=== PATIENT | male | born 1955 | race Caucasian/White ===

== ENCOUNTER 2017-01-11 11:04 | Emergency (ER) | payer MEDICAID ==
[2017-01-11 11:20] VITALS: BMI 22.9
[2017-01-11 11:24] VITALS: PULSE 62; RESP 18
[2017-01-11 12:16] LABS: RBC URINE 606 /hpf (0-3); URINE BILIRUBIN NEGATIVE (NEGATIVE); URINE BLOOD 2+ (NEGATIVE); URINE COLOR Red (YELLOW); URINE GLUCOSE (UA) NORMAL (Normal); URINE KETONE NEGATIVE (NEGATIVE); URINE LEUKOCYTE ESTERASE NEG Leu/uL (Negative); URINE PROTEIN 2+ mg/dL (NEGATIVE); URINE UROBILINOGEN NORMAL mg/dL (0.2-1.0); WBC URINE 5 /hpf (0-5)
--- NOTE | 2017-01-11 12:24 | C.PDOC ---
History Of Present Illness 61 year old male presents to the ED for evaluation of urinary retention which began earlier today. Patient states he was seen in a hospital around 1 week ago for the same complaint and had a altamirano catheter placed. Patient states he recently saw Dr. Jones, who removed the altamirano catheter and advised patient to follow up in clinic because he does not have insurance coverage. Patient states he was unable to urinate today and attempted to inset a altamirano catheter by himself without success. Patient denies abdominal pain, back pain, dysuria. Time Seen by Provider: 01/11/17 11:18 Chief Complaint (Nursing): Male Genitourinary History Per: Patient History/Exam Limitations: no limitations Onset/Duration Of Symptoms: Hrs Current Symptoms Are (Timing): Still Present Quality Of Discomfort: "Pain" Associated Symptoms: Urinary Symptoms (urinary retention ). denies: Back Pain Additional History Per: Patient Past Medical History Reviewed: Historical Data, Nursing Documentation, Vital Signs Vital Signs: Last Vital Signs Temp 97.8 F 01/11/17 12:57 Pulse 62 01/11/17 12:57 Resp 18 01/11/17 12:57 BP 119/74 01/11/17 12:57 Pulse Ox 98 01/11/17 12:57 - Medical History PMH: Benign Prostatic Hyperplasia Surgical History: No Surg Hx - [facility] Procedures INSERT INDWELLING CATH (02/09/13) Family History: States: Unknown Family Hx - Social History Hx Tobacco Use: No Hx Alcohol Use: No Hx Substance Use: No - Immunization History Hx Tetanus Toxoid Vaccination: No Hx Influenza Vaccination: No Hx Pneumococcal Vaccination: No Review Of Systems Gastrointestinal: Negative for: Abdominal Pain Genitourinary: Positive for: Other (urinary retention ). Negative for: Dysuria Musculoskeletal: Negative for: Back Pain Physical Exam - Physical Exam Appears: Non-toxic, No Acute Distress Skin: Normal Color, Warm, Dry Head: Atraumatic, Normacephalic Eye(s): bilateral: Normal Inspection Oral Mucosa: Moist Neck: Supple Chest: Symmetrical, No Deformity, No Tenderness Cardiovascular: Rhythm Regular, No Murmur Respiratory: Normal Breath Sounds, No Rales, No Rhonchi, No Wheezing Male Genital: Other (scant amount of blood at tip of penis ) Extremity: Normal ROM, Capillary Refill (less than 2 seconds ) Neurological/Psych: Oriented x3, Normal Speech, Normal Cognition Gait: Steady ED Course And Treatment O2 Sat by Pulse Oximetry: 99 (on RA) Pulse Ox Interpretation: Normal Progress Note: Urinalysis ordered and reviewed. Urine culture obtained and sent to lab for further evaluation. Bladder scan > 600 ml urine. 18Fr altamirano catheter inserted successfully on first attempt with return of yellow urine with scant amount of blood, connected to altamirano bag. Patient tolerated well with instant relief. Reassessment Condition: Improved Disposition - Disposition Referrals: [facility] [Outside] [facility] [Outside] Robb Jones MD [Staff Provider] - Disposition: HOME/ ROUTINE Disposition Time: 13:00 Condition: GOOD Additional Instructions: Follow up with clinic and urology for further evaluation Instructions: Urinary Retention in Men (ED) Forms: [facility] (Guyanese) Print Language: AZERBAIJANI - POA Present On Arrival: None - Clinical Impression Clinical Impression: Urinary retention - PA / APPRENTICE JOCKEY / Resident Statement MD/DO has reviewed & agrees with the documentation as recorded. - Scribe Statement The provider has reviewed the documentation as recorded by the Scribe (Amber Lim) All medical record entries made by the Scribe were at my direction and personally dictated by me. I have reviewed the chart and agree that the record accurately reflects my personal performance of the history, physical exam, medical decision making, and the department course for this patient. I have also personally directed, reviewed, and agree with the discharge instructions and disposition. Procedures - Catheter Insertion (Urinary) Type of Catheter Inserted: Altamirano (18Fr) Results: successfully catheterize-immediate flow Patient Tolerated Procedure: well, no complications Complications: bloody urine (slighy)
[2017-01-11 12:59] VITALS: BP 119/74; TEMP 97.8
[2017-01-11 15:19] VITALS: O2SAT 99
== END 2017-01-11 12:59 | disposition home or self-care (01) ==
LOC: C.ER 11:04
DX: R33.9 Retention of urine, unspecified (principal)

== ENCOUNTER 2017-01-14 16:52 | Emergency (ER) | payer SELFPAY ==
[2017-01-14 16:53] VITALS: BMI 22.9
[2017-01-14 17:06] VITALS: BP 154/83; RESP 18; TEMP 98
--- NOTE | 2017-01-14 17:18 | C.PDOC ---
History Of Present Illness REQUESTING ESPARZA REMOVAL. PLACED 01/11 DENIES PAIN, FEVER. UNABLE TO FU CLINIC DUE TO LACK INSURANCE. REQUESTING REMOVAL DUE TO DISCOMFORT, DIFF TO WORK W ESPARZA EXAM ABD NEG +ESPARZA IN PLACE NO HEMATURIA Time Seen by Provider: 01/14/17 17:14 Chief Complaint (Nursing): Male Genitourinary History Per: Patient History/Exam Limitations: no limitations Onset/Duration Of Symptoms: Days Past Medical History Reviewed: Historical Data, Nursing Documentation, Vital Signs Vital Signs: Last Vital Signs Temp 98 F 01/14/17 17:02 Pulse 63 01/14/17 17:02 Resp 18 01/14/17 17:02 BP 154/83 H 01/14/17 17:02 Pulse Ox 99 01/14/17 17:19 - Medical History PMH: Benign Prostatic Hyperplasia - [facility] Procedures INSERT INDWELLING CATH (02/09/13) Family History: States: No Known Family Hx - Social History Hx Tobacco Use: No Hx Alcohol Use: No Hx Substance Use: No - Immunization History Hx Tetanus Toxoid Vaccination: No Hx Influenza Vaccination: No Hx Pneumococcal Vaccination: No Review Of Systems Except As Marked, All Systems Reviewed And Found Negative. Constitutional: Negative for: Fever Gastrointestinal: Negative for: Abdominal Pain Genitourinary: Negative for: Dysuria, Hematuria Physical Exam - Physical Exam Appears: Non-toxic, No Acute Distress Skin: Warm, Dry, No Rash Head: Atraumatic, Normacephalic Oral Mucosa: Moist Gastrointestinal/Abdominal: Normal Exam, Soft, No Tenderness, No Guarding, No Rebound Male Genital: Other ((+) Esparza in place. (-) No hematuria.) Extremity: Normal ROM, No Swelling Neurological/Psych: Oriented x3, Normal Speech, Normal Motor ED Course And Treatment O2 Sat by Pulse Oximetry: 99 (RA) Pulse Ox Interpretation: Normal Disposition Counseled Patient/Family Regarding: Diagnosis, Need For Followup, Rx Given - Disposition Referrals: [facility] [Outside] [facility] [Outside] Disposition: HOME/ ROUTINE Disposition Time: 17:18 Condition: IMPROVED Prescriptions: Tamsulosin [Flomax] 0.4 mg PO DAILY #14 cap Forms: [facility] Macanese, [facility] (Macanese) Print Language: LEBANESE - Clinical Impression Clinical Impression: Encounter for Esparza catheter removal - Scribe Statement The provider has reviewed the documentation as recorded by the Scribe Jaylin Hannah Provider Attestation: All medical record entries made by the John were at my direction and personally dictated by me. I have reviewed the chart and agree that the record accurately reflects my personal performance of the history, physical exam, medical decision making, and the department course for this patient. I have also personally directed, reviewed, and agree with the discharge instructions and disposition.
[2017-01-14 17:43] VITALS: PULSE 70; O2SAT 100
== END 2017-01-14 17:45 | disposition home or self-care (01) ==
LOC: C.ER 16:52
DX: Z43.6 Encounter for attention to other artificial openings of urinary tract (principal)